=== PATIENT | female | born 1970 | race Caucasian/White ===

== ENCOUNTER 2023-12-29 09:43 | Emergency (ER) | payer OTHER ==
[~2023-12-29] VITALS: Ht 167.6 cm; Wt 77.3 kg
[~2023-12-29 09:43] MED LIST: AMOXICILLIN 8751 TAB PO; GENTAMICIN EYE D5 ML OU; PLAQUENIL200 MG PO
[2023-12-29 10:29] LABS: BASO # 0.03 K/mm3 (0.02-0.10); EOS % 3.7 % (1.0-5.0); HEMATOCRIT 40.6 % (37.0-47.0); HEMOGLOBIN 13.8 g/dL (12.5-16.0); LYMPH# 1.41 K/mm3 (1.50-4.00); MEAN CELL VOLUME 86 fl (78-100); MEAN CORPUSCULAR HEMOGLOBIN 29 pg (27-31); MEAN CORPUSCULAR HGB CONC 34 g/dL (33-37); MEAN PLATELET VOLUME 9.9 fl (7.4-10.4); MONO # 0.39 K/mm3 (0.20-0.80); PLATELET COUNT 209 K/mm3 (130-400); RED BLOOD COUNT 4.72 M/mm3 (4.10-5.30); RED CELL DISTRIBUTION WIDTH 12.8 % (11.5-14.5); WHITE BLOOD COUNT 5.4 K/mm3 (4.8-10.8)
[2023-12-29 10:36] LABS: ALBUMIN 4.1 g/dL (3.5-5.0)
[2023-12-29 10:38] LABS: CALCIUM 8.8 mg/dL (8.3-10.5)
[2023-12-29 10:41] LABS: TOTAL PROTEIN 6.3 g/dL (6.4-8.3)
[2023-12-29 10:43] LABS: TOTAL BILIRUBIN 0.38 mg/dL (0.2-1.2)
[2023-12-29 11:57] LABS: URINE APPEARANCE CLEAR (CLEAR); URINE BILIRUBIN NEGATIVE (NEGATIVE); URINE BLOOD TRACE-INTACT (NEGATIVE); URINE COLOR YELLOW (YELLOW); URINE GLUCOSE NEGATIVE (NEGATIVE); URINE KETONE NEGATIVE (NEGATIVE); URINE LEUKOCYTE ESTERASE NEGATIVE (NEGATIVE); URINE NITRATE NEGATIVE (NEGATIVE); URINE PROTEIN(semi-quant) NEGATIVE (NEGATIVE)
[2023-12-29] MEDS ORDERED: NORCO 325 MG-51 TA1 PO (13:07)
[2023-12-29] MEDS ORDERED: PREDNISONE20 MG PO (13:07)
[2023-12-29 13:52] VITALS: BP 165/93
== END 2023-12-29 14:24 | disposition home or self-care (01) ==
LOC: ED 09:43
PROVIDERS: Nurse Practitioner Family
DX: M54.50 Low back pain, unspecified (principal); I10 Essential (primary) hypertension
CPT/HCPCS: J2270; J3010; J7030